=== PATIENT | male | born 1945 | race Two or more races ===

== ENCOUNTER 2018-08-01 19:44 | Emergency (ER) | payer MEDICARE ==
[~2018-08-01] VITALS: Ht 163.8 cm; Wt 94.1 kg
[2018-08-01 20:14] LABS: BASOPHILS # (AUTO) 0.07 x10^3/uL (0-0.1); BASOPHILS % (AUTO) 1 % (0-1); EOSINOPHILS # (AUTO) 0.25 x10^3/uL (0-0.4); EOSINOPHILS % (AUTO) 3 % (1-7); LYMPHOCYTES # (AUTO) 1.14 x10^3/uL (1-3.4); LYMPHOCYTES % (AUTO) 13 % (22-44); MD NO; MEAN CORPUSCULAR HEMOGLOBIN 29.3 pg (27.5-34.5); MEAN CORPUSCULAR HGB CONC 33.5 g/dL (33.2-36.2); MEAN CORPUSCULAR VOLUME 87.3 fL (81-97); MEAN PLATELET VOLUME 8.4 fL (7.4-10.4); MONOCYTES # (AUTO) 0.64 x10^3/uL (0.2-0.8); MONOCYTES % (AUTO) 7 % (2-9); NEUTROPHILS # (AUTO) 7.01 x10^3/uL (1.8-6.8); NEUTROPHILS % (AUTO) 77 % (42-75); PLATELET COUNT 270 x10^3/uL (130-400); RED BLOOD COUNT 3.59 x10^6/uL (4.38-5.82); RED CELL DISTRIBUTION WIDTH 17.7 % (9.4-14.8)
[2018-08-01 20:25] LABS: ALANINE AMINOTRANSFERASE 18 U/L (12-78); ALBUMIN 2.8 g/dL (3.4-5.0); ANION GAP 11 mmol/L (5-15); CHLORIDE 103 mmol/L (98-107)
[2018-08-01 20:27] LABS: ALKALINE PHOSPHATASE 283 U/L (45-117); BILIRUBIN,TOTAL 1.3 mg/dL (0.2-1.0); TOTAL PROTEIN 7.7 g/dL (6.4-8.2)
[2018-08-01 20:33] VITALS: BP 138/69
[2018-08-01 20:38] LABS: MICROSCOPIC NOT IND
[2018-08-01 20:43] LABS: CULTURE INDICATED? NO
== END 2018-08-01 21:22 | disposition home or self-care (01) ==
LOC: ED 21:05
DX: R10.84 Generalized abdominal pain (principal); I10 Essential (primary) hypertension; E11.9 Type 2 diabetes mellitus without complications; E78.00 Pure hypercholesterolemia, unspecified
CPT/HCPCS: 36415; 80053; 81003; 83690; 85025; 99284

== ENCOUNTER 2018-11-01 16:07 | Emergency (ER) | payer MEDICARE, OTHER ==
[~2018-11-01] VITALS: Ht 162.6 cm; Wt 104.0 kg
[2018-11-01 17:19] LABS: BASOPHILS # (AUTO) 0.01 x10^3/uL (0-0.1); BASOPHILS % (AUTO) 0 % (0-1); EOSINOPHILS % (AUTO) 2 % (1-7); LYMPHOCYTES % (AUTO) 9 % (22-44); MD NO; MEAN CORPUSCULAR HEMOGLOBIN 25.8 pg (27.5-34.5); MEAN CORPUSCULAR HGB CONC 32.8 g/dL (33.2-36.2); MEAN CORPUSCULAR VOLUME 78.8 fL (81-97); MEAN PLATELET VOLUME 7.7 fL (7.4-10.4); MONOCYTES # (AUTO) 0.61 x10^3/uL (0.2-0.8); MONOCYTES % (AUTO) 7 % (2-9); NEUTROPHILS # (AUTO) 7.57 x10^3/uL (1.8-6.8); NEUTROPHILS % (AUTO) 82 % (42-75); PLATELET COUNT 318 x10^3/uL (130-400); RED BLOOD COUNT 4.09 x10^6/uL (4.38-5.82); RED CELL DISTRIBUTION WIDTH 19.6 % (9.4-14.8)
[2018-11-01 17:31] LABS: ALANINE AMINOTRANSFERASE 21 U/L (12-78); ALBUMIN 2.5 g/dL (3.4-5.0); ANION GAP 9 mmol/L (5-15); CALCIUM 8.2 mg/dL (8.5-10.1); CHLORIDE 104 mmol/L (98-107); CREATININE 1.43 mg/dL (0.7-1.3)
[2018-11-01 17:33] LABS: ALKALINE PHOSPHATASE 346 U/L (45-117); BILIRUBIN,TOTAL 0.7 mg/dL (0.2-1.0); TOTAL PROTEIN 7.4 g/dL (6.4-8.2)
[2018-11-01] MEDS ORDERED: LIDOCAINE-MPF 1%, 5ML ONE (19:10)
[2018-11-01 21:03] VITALS: BP 112/42
== END 2018-11-01 21:09 | disposition home or self-care (01) ==
LOC: ED 17:19
DX: R18.8 Other ascites (principal); K74.60 Unspecified cirrhosis of liver; I10 Essential (primary) hypertension; E11.9 Type 2 diabetes mellitus without complications; E78.00 Pure hypercholesterolemia, unspecified; Z87.891 Personal history of nicotine dependence; Z95.1 Presence of aortocoronary bypass graft
CPT/HCPCS: 36415; 49083; 76700; 80053; 85025; 99285

== ENCOUNTER 2018-11-11 18:06 | Inpatient (IN) | payer OTHER ==
[~2018-11-11] VITALS: Ht 167.6 cm; Wt 91.9 kg
--- NOTE | 2018-11-11 19:09 | NUR ---
PT. IS A & O X 4 WITH C/O BILAT LEG WOUNDS. PT. WAS SENT FROM [facility] FOR IV ABX THERAPY STATED BY THE PT.'S . PT. HAS THE CP MONITOR IN PLACE. IV ACCESS ESTABLISHED. LABS WERE DRAWN AND SENT INCLUDING BLOOD CULTURES. PT.'S LUNGS ARE CTA. MM ARE PINK AND MOIST WITH PULSES +2 THROUGHOUT. PT.'S CMS CHECKS ARE INTACT TO BILAT LOWER EXTREMITIES. PT.'S LEGS WERE CLEANSED AND DRESSED ENGINEERING INSPECTOR STATED BY HE AND . CARE WAS COMPLETED BY [facility].
[2018-11-11 19:15] LABS: BASOPHILS # (AUTO) 0.04 x10^3/uL (0-0.1); BASOPHILS % (AUTO) 1 % (0-1); EOSINOPHILS # (AUTO) 0.15 x10^3/uL (0-0.4); EOSINOPHILS % (AUTO) 2 % (1-7); LYMPHOCYTES # (AUTO) 0.98 x10^3/uL (1-3.4); LYMPHOCYTES % (AUTO) 11 % (22-44); MD NO; MEAN CORPUSCULAR HGB CONC 33.2 g/dL (33.2-36.2); MEAN CORPUSCULAR VOLUME 78.3 fL (81-97); MEAN PLATELET VOLUME 8.5 fL (7.4-10.4); MONOCYTES # (AUTO) 0.88 x10^3/uL (0.2-0.8); MONOCYTES % (AUTO) 10 % (2-9); NEUTROPHILS # (AUTO) 7.08 x10^3/uL (1.8-6.8); NEUTROPHILS % (AUTO) 78 % (42-75); PLATELET COUNT 316 x10^3/uL (130-400); RED BLOOD COUNT 4.15 x10^6/uL (4.38-5.82); RED CELL DISTRIBUTION WIDTH 20.1 % (9.4-14.8)
[2018-11-11 20:19] LABS: ALANINE AMINOTRANSFERASE 56 U/L (12-78); ALBUMIN 2.3 g/dL (3.4-5.0); ANION GAP 8 mmol/L (5-15); CALCIUM 8.8 mg/dL (8.5-10.1); CHLORIDE 104 mmol/L (98-107); CREATININE 1.42 mg/dL (0.7-1.3)
[2018-11-11 20:21] LABS: ALKALINE PHOSPHATASE 391 U/L (45-117); BILIRUBIN,TOTAL 0.5 mg/dL (0.2-1.0); TOTAL PROTEIN 6.9 g/dL (6.4-8.2)
--- NOTE | 2018-11-11 20:25 | NUR ---
DRESSINGS REMOVED ORDERED. PT. IS REQUESTING PAIN MEDS. DISCUSSED WITH DR. SHANKAR. ORDERS RECEIVED. PT. REMAINS MONITORED.
[2018-11-11] MEDS ORDERED: ONDANSETRON 2MG/ML, 2ML ONE (20:34)
[2018-11-11] MEDS ORDERED: MORPHINE SULFATE 4 MG/ML, 1ML ONE (20:35)
[2018-11-11] MEDS ORDERED: POTA25TA4 PO (20:37)
[2018-11-11] MEDS ORDERED: ALLO100T30 PO (20:37)
[2018-11-11] MEDS ORDERED: BUME2TAB PO (20:37)
[2018-11-11] MEDS ORDERED: SPIR100T4 PO (20:37)
--- NOTE | 2018-11-11 20:45 | NUR ---
PT. WAS MEDICATED FOR PAIN ORDERED. PT. WAS GIVEN ICE CHIPS AND REPOSITIONED FOR COMFORT. WARM BLANKETS ARE IN PLACE. PT.'S HOB IS ELEVATED GREATER THAN 30 DEGREES. PT. IS RESTING AT THIS TIME.
[2018-11-11] MEDS ORDERED: morphine SULFATE 10 MG/ML, 1ML IVPush ONE (21:00)
[2018-11-11] MEDS ORDERED: ONDANSETRON 2MG/ML, 2ML IVPush ONE (21:00)
[2018-11-11] MEDS ORDERED: AMPICILLIN/SULBACTAM 3 GM in SODIUM CHLORIDE 0.9% 100 ML IV ONE (21:00)
[2018-11-11] MEDS ORDERED: VANCOMYCIN PER PHARMACY MC PRN (21:00)
[2018-11-11] MEDS ORDERED: PHARMACOKINETIC CONSULTATION MC ONE (21:00)
[2018-11-11] MEDS ORDERED: VANCOMYCIN 1,600 MG in SODIUM CHLORIDE 0.9% 250 ML IV ONE (21:30)
--- NOTE | 2018-11-11 21:55 | NUR ---
LEG WOUNDS WERE DRESSED. IV ABX ARE INFUSING ON THE PUMP. MEDS WILL NOT SCAN.
--- NOTE | 2018-11-11 22:35 | NUR ---
REPORT WAS CALLED TO SINDY CAON. PT. IS READY FOR TRANSPORT. PT. VOIDED IN THE URINAL.
--- NOTE | 2018-11-11 22:38 | NUR ---
PT.'S WAS GIVEN A SPRITE ZERO. PT. IS BEING TRANSPORTED TO THE FLOOR.
[2018-11-11 23:45] VITALS: BP 130/76
[2018-11-12 00:07] VITALS: BP 143/73
[2018-11-12] MEDS ORDERED: DOCUSATE 100 MG CAPSULE PO PRN (00:30)
[2018-11-12] MEDS ORDERED: ONDANSETRON ODT 4 MG PO PRN (00:30)
[2018-11-12] MEDS ORDERED: hydrALAzine 20 MG/ML, 1ML IVPush PRN (00:30)
[2018-11-12] MEDS ORDERED: VANCOMYCIN PER PHARMACY MC PRN (00:30)
[2018-11-12] MEDS ORDERED: PHARMACY MAY ADJ FOR RENAL FX MC PRN (01:00)
[2018-11-12] MEDS ORDERED: AMPICILLIN/SULBACTAM 3 GM IM SCH (05:00)
[2018-11-12] MEDS ORDERED: AMPICILLIN/SULBACTAM 3 GM IV SCH (05:00)
[2018-11-12] MEDS: AMPICILLIN/SULBACTAM 3 GM in SODIUM CHLORIDE 0.9% 100 ML IV SCH ×3 (05:03→21:17)
[2018-11-12] MEDS: HEPARIN 5,000 UNITS/ML, 1ML SQ SCH ×3 (05:04→21:18)
[2018-11-12] MEDS ORDERED: PHARMACOKINETIC CONSULTATION MC ONE (07:00)
[2018-11-12] MEDS ORDERED: PHARMACOKINETIC MONITORING MC PRN (07:00)
[2018-11-12 07:47] VITALS: BP 104/61
[2018-11-12] MEDS: ALLOPURINOL 100 MG TABLET PO SCH (09:05)
[2018-11-12] MEDS: BUMETANIDE 1 MG TABLET PO SCH ×2 (09:05→21:17)
[2018-11-12] MEDS: POTASSIUM CHLORIDE 10 MEQ TABLET.ER PO SCH ×2 (09:05→21:17)
[2018-11-12] MEDS: SPIRONOLACTONE 100 MG TABLET PO SCH ×2 (09:05→21:17)
[2018-11-12] MEDS ORDERED: GLUCAGON 1 MG IM PRN (10:00)
[2018-11-12] MEDS ORDERED: DEXTROSE 4 GM TAB.CHEW PO PRN (10:00)
[2018-11-12] MEDS ORDERED: DEXTROSE 50%, 50ML SYRINGE IVPush PRN (10:00)
[2018-11-12] MEDS: INSULIN LISPRO 100 UNITS/ML, PEN SQ-INSULIN SCH ×3 (11:00→21:00)
[2018-11-12 12:28] LABS: HEMOGLOBIN A1C 5.9 % (4.2-6.3)
[2018-11-12] MEDS ORDERED: GADOBUTROL 10 MMOL/10 ML PFS ONE (13:11)
[2018-11-12 15:02] VITALS: BP 125/67
[2018-11-12] MEDS ORDERED: VANCOMYCIN 1,700 MG in SODIUM CHLORIDE 0.9% 250 ML IV SCH (20:00)
[2018-11-12] MEDS: SODIUM CHLORIDE FLUSH 10ML SYR IVF SCH (21:18)
[2018-11-12 21:37] VITALS: BP 131/71
[2018-11-13] MEDS ORDERED: HYDROmorphone 1 MG/ML, 1ML IV PRN (02:30)
[2018-11-13] MEDS: OXYcodone IR 5MG TABLET PO PRN ×2 (03:03→19:59)
[2018-11-13 03:51] VITALS: BP 106/56
[2018-11-13] MEDS: AMPICILLIN/SULBACTAM 3 GM in SODIUM CHLORIDE 0.9% 100 ML IV SCH ×3 (05:03→19:59)
[2018-11-13] MEDS: HEPARIN 5,000 UNITS/ML, 1ML SQ SCH ×3 (05:04→23:09)
[2018-11-13 05:29] LABS: BASOPHILS # (AUTO) 0.11 x10^3/uL (0-0.1); BASOPHILS % (AUTO) 1 % (0-1); EOSINOPHILS # (AUTO) 0.34 x10^3/uL (0-0.4); EOSINOPHILS % (AUTO) 4 % (1-7); LYMPHOCYTES # (AUTO) 1.36 x10^3/uL (1-3.4); LYMPHOCYTES % (AUTO) 16 % (22-44); MD NO; MEAN CORPUSCULAR HGB CONC 32.8 g/dL (33.2-36.2); MEAN CORPUSCULAR VOLUME 79.1 fL (81-97); MEAN PLATELET VOLUME 8.1 fL (7.4-10.4); MONOCYTES # (AUTO) 0.79 x10^3/uL (0.2-0.8); MONOCYTES % (AUTO) 9 % (2-9); NEUTROPHILS # (AUTO) 5.92 x10^3/uL (1.8-6.8); NEUTROPHILS % (AUTO) 70 % (42-75); PLATELET COUNT 255 x10^3/uL (130-400); RED BLOOD COUNT 3.84 x10^6/uL (4.38-5.82)
[2018-11-13 05:41] LABS: ANION GAP 7 mmol/L (5-15); CALCIUM 8.1 mg/dL (8.5-10.1); CHLORIDE 101 mmol/L (98-107)
[2018-11-13 05:43] LABS: CREATININE 1.61 mg/dL (0.7-1.3)
[2018-11-13] MEDS: INSULIN LISPRO 100 UNITS/ML, PEN SQ-INSULIN SCH ×4 (07:00→20:01)
[2018-11-13 08:27] VITALS: BP 110/61
[2018-11-13] MEDS: ALLOPURINOL 100 MG TABLET PO SCH (10:35)
[2018-11-13] MEDS: SODIUM CHLORIDE FLUSH 10ML SYR IVF SCH ×2 (10:36→21:00)
[2018-11-13 14:10] VITALS: BP 116/62
[2018-11-13 21:12] VITALS: BP 123/68
[2018-11-14] MEDS: AMPICILLIN/SULBACTAM 3 GM in SODIUM CHLORIDE 0.9% 100 ML IV SCH ×2 (02:00→08:13)
[2018-11-14 03:58] VITALS: BP 122/67
[2018-11-14] MEDS: HEPARIN 5,000 UNITS/ML, 1ML SQ SCH ×3 (06:21→23:00)
[2018-11-14] MEDS: INSULIN LISPRO 100 UNITS/ML, PEN SQ-INSULIN SCH (07:00)
[2018-11-14 07:42] VITALS: BP 114/64
[2018-11-14] MEDS: ALLOPURINOL 100 MG TABLET PO SCH (08:12)
[2018-11-14] MEDS: SODIUM CHLORIDE FLUSH 10ML SYR IVF SCH ×2 (08:13→20:00)
[2018-11-14 12:40] VITALS: BP 118/67
[2018-11-14 19:25] VITALS: BP 118/66
[2018-11-14] MEDS: AMOXICILLIN/CLAV 875-125MG TABLET PO SCH (20:01)
[2018-11-14] MEDS: OXYcodone IR 5MG TABLET PO PRN (23:00)
[2018-11-15 01:12] VITALS: BP 127/64
[2018-11-15] MEDS: HEPARIN 5,000 UNITS/ML, 1ML SQ SCH ×2 (06:12→14:15)
[2018-11-15 07:54] VITALS: BP 114/71
[2018-11-15] MEDS: AMOXICILLIN/CLAV 875-125MG TABLET PO SCH (08:40)
[2018-11-15] MEDS: ALLOPURINOL 100 MG TABLET PO SCH (08:40)
[2018-11-15] MEDS: SODIUM CHLORIDE FLUSH 10ML SYR IVF SCH (08:41)
[2018-11-15] MEDS ORDERED: SPIRONOLACTONE 25 MG TABLET PO SCH (09:00)
[2018-11-15] MEDS ORDERED: BUMETANIDE 1 MG TABLET PO SCH (09:00)
[2018-11-15 13:34] VITALS: BP 127/67
[2018-11-15] MEDS ORDERED: BUME1TAB21 PO (13:54)
[2018-11-15] MEDS ORDERED: AMOX1TAB12 PO (13:54)
[2018-11-15] MEDS ORDERED: SPIR25TA PO (13:54)
== END 2018-11-15 15:50 | disposition home or self-care (01) | DRG 638 ==
LOC: ED 19:16 → EDIP 21:50 → 3NE 22:47 → DCLOUNGE 11-15 15:29
PROVIDERS: ADMIT Hospitalist; ATTEND Hospitalist
DX: E11.622 Type 2 diabetes mellitus with other skin ulcer (principal); L03.116 Cellulitis of left lower limb; R18.8 Other ascites; L97.919 Non-pressure chronic ulcer of unspecified part of right lower leg with unspecified severity; L97.928 Non-pressure chronic ulcer of unspecified part of left lower leg with other specified severity; L03.115 Cellulitis of right lower limb; E11.51 Type 2 diabetes mellitus with diabetic peripheral angiopathy without gangrene; E11.22 Type 2 diabetes mellitus with diabetic chronic kidney disease; E11.21 Type 2 diabetes mellitus with diabetic nephropathy; E11.40 Type 2 diabetes mellitus with diabetic neuropathy, unspecified; E11.69 Type 2 diabetes mellitus with other specified complication; E78.00 Pure hypercholesterolemia, unspecified; E78.5 Hyperlipidemia, unspecified; I13.10 Hypertensive heart and chronic kidney disease without heart failure, with stage 1 through stage 4 chronic kidney disease, or unspecified chronic kidney disease; I83.019 Varicose veins of right lower extremity with ulcer of unspecified site; I83.029 Varicose veins of left lower extremity with ulcer of unspecified site; I87.8 Other specified disorders of veins; K74.60 Unspecified cirrhosis of liver; N18.9 Chronic kidney disease, unspecified; Z95.1 Presence of aortocoronary bypass graft; Z79.4 Long term (current) use of insulin; Z87.891 Personal history of nicotine dependence
CPT/HCPCS: 36415; 80048; 80053; 80202; 82962; 83036; 83605; 85025; 87040; 90656; 93922; 93970; A9585; G0378; J0295; J1644; J2405; J3370; Q0162; 29581-50; J2270; J7050

== ENCOUNTER 2018-11-20 05:09 | Emergency (ER) | payer OTHER ==
[~2018-11-20] VITALS: Ht 162.6 cm; Wt 93.8 kg
[~2018-11-20 05:09] MED LIST: ALLO100T30 PO; AMOX1TAB12 PO; BUME1TAB21 PO; BUME2TAB PO; POTA25TA4 PO; SPIR100T4 PO; SPIR25TA PO
--- NOTE | 2018-11-20 05:22 | NUR ---
HERE 11/03/18 FOR SAME, PARACENTESIS DONE, 9000ML FLUID REMOVED
[2018-11-20 05:49] LABS: BASOPHILS # (AUTO) 0.14 x10^3/uL (0-0.1); BASOPHILS % (AUTO) 2 % (0-1); EOSINOPHILS # (AUTO) 0.31 x10^3/uL (0-0.4); EOSINOPHILS % (AUTO) 4 % (1-7); LYMPHOCYTES # (AUTO) 1.09 x10^3/uL (1-3.4); LYMPHOCYTES % (AUTO) 14 % (22-44); MD NO; MEAN CORPUSCULAR HEMOGLOBIN 26.7 pg (27.5-34.5); MEAN CORPUSCULAR HGB CONC 33.2 g/dL (33.2-36.2); MEAN CORPUSCULAR VOLUME 80.3 fL (81-97); MEAN PLATELET VOLUME 7.9 fL (7.4-10.4); MONOCYTES # (AUTO) 0.63 x10^3/uL (0.2-0.8); MONOCYTES % (AUTO) 8 % (2-9); NEUTROPHILS # (AUTO) 5.71 x10^3/uL (1.8-6.8); NEUTROPHILS % (AUTO) 73 % (42-75); PLATELET COUNT 258 x10^3/uL (130-400); RED BLOOD COUNT 3.96 x10^6/uL (4.38-5.82); RED CELL DISTRIBUTION WIDTH 20.4 % (9.4-14.8)
[2018-11-20 06:02] LABS: ALANINE AMINOTRANSFERASE 34 U/L (12-78); ALBUMIN 2.3 g/dL (3.4-5.0); ANION GAP 7 mmol/L (5-15); CALCIUM 8.1 mg/dL (8.5-10.1); CHLORIDE 101 mmol/L (98-107)
[2018-11-20 06:04] LABS: ALKALINE PHOSPHATASE 383 U/L (45-117); BILIRUBIN,TOTAL 0.6 mg/dL (0.2-1.0); CREATININE 1.27 mg/dL (0.7-1.3); TOTAL PROTEIN 7.1 g/dL (6.4-8.2)
[2018-11-20] MEDS ORDERED: LIDOCAINE-MPF 1%, 5ML INFIL ONE (06:30)
--- NOTE | 2018-11-20 06:32 | NUR ---
PT RESTING CALMLY, DENIES PAIN OR NEEDS AT THIS TIME, CALL LIGHT WITHIN REACH, AWAITING PARACENTESIS
[2018-11-20] MEDS ORDERED: LIDOCAINE-MPF 1%, 5ML ONE (06:34)
--- NOTE | 2018-11-20 06:55 | NUR ---
REPORT GIVEN TO RACHAEL WATSON
--- NOTE | 2018-11-20 08:00 | NUR ---
pt to ir
[2018-11-20 09:07] VITALS: BP 150/74
== END 2018-11-20 09:09 | disposition home or self-care (01) ==
LOC: ED 05:52
DX: R18.8 Other ascites (principal); D63.8 Anemia in other chronic diseases classified elsewhere; I10 Essential (primary) hypertension; E11.9 Type 2 diabetes mellitus without complications; F17.200 Nicotine dependence, unspecified, uncomplicated
CPT/HCPCS: 36415; 49083; 80053; 85025; 99285

== ENCOUNTER 2018-11-27 08:22 | Emergency (ER) | payer OTHER ==
[~2018-11-27] VITALS: Ht 162.6 cm; Wt 91.0 kg
[2018-11-27] MEDS ORDERED: LIDOCAINE 1%, 10ML ONE (08:30)
--- NOTE | 2018-11-27 09:26 | NUR ---
PT IN US NOW
[2018-11-27 09:28] LABS: BASOPHILS # (AUTO) 0.06 x10^3/uL (0-0.1); BASOPHILS % (AUTO) 1 % (0-1); EOSINOPHILS # (AUTO) 0.26 x10^3/uL (0-0.4); EOSINOPHILS % (AUTO) 4 % (1-7); LYMPHOCYTES # (AUTO) 0.96 x10^3/uL (1-3.4); LYMPHOCYTES % (AUTO) 15 % (22-44); MD NO; MEAN CORPUSCULAR HEMOGLOBIN 25.1 pg (27.5-34.5); MEAN CORPUSCULAR HGB CONC 31.1 g/dL (33.2-36.2); MEAN CORPUSCULAR VOLUME 80.8 fL (81-97); MEAN PLATELET VOLUME 8.2 fL (7.4-10.4); MONOCYTES # (AUTO) 0.47 x10^3/uL (0.2-0.8); MONOCYTES % (AUTO) 7 % (2-9); NEUTROPHILS # (AUTO) 4.65 x10^3/uL (1.8-6.8); NEUTROPHILS % (AUTO) 73 % (42-75); PLATELET COUNT 283 x10^3/uL (130-400); RED BLOOD COUNT 3.98 x10^6/uL (4.38-5.82)
[2018-11-27 09:29] LABS: ALANINE AMINOTRANSFERASE 34 U/L (12-78); ALBUMIN 2.2 g/dL (3.4-5.0); ANION GAP 9 mmol/L (5-15); CALCIUM 8.1 mg/dL (8.5-10.1); CHLORIDE 100 mmol/L (98-107)
[2018-11-27 09:32] LABS: ALKALINE PHOSPHATASE 375 U/L (45-117); BILIRUBIN,TOTAL 0.6 mg/dL (0.2-1.0); CREATININE 1.12 mg/dL (0.7-1.3); TOTAL PROTEIN 6.5 g/dL (6.4-8.2)
--- NOTE | 2018-11-27 10:54 | NUR ---
Patient given discharge instructions and they have confirmed that they understand the instructions. Patient ambulatory with steady gait.
[2018-11-27 10:55] VITALS: BP 101/41
== END 2018-11-27 10:56 | disposition home or self-care (01) ==
LOC: ED 08:40
DX: K70.31 Alcoholic cirrhosis of liver with ascites (principal); I10 Essential (primary) hypertension; E11.9 Type 2 diabetes mellitus without complications
CPT/HCPCS: 36415; 49083; 80053; 85025; 88112; 88305; 99285; J3490; 88341; 88342; 99284

== ENCOUNTER 2018-12-06 17:42 | Emergency (ER) | payer OTHER ==
[~2018-12-06] VITALS: Ht 162.6 cm; Wt 90.9 kg
[2018-12-06 18:46] LABS: BASOPHILS # (AUTO) 0.08 x10^3/uL (0-0.1); BASOPHILS % (AUTO) 1 % (0-1); EOSINOPHILS # (AUTO) 0.31 x10^3/uL (0-0.4); EOSINOPHILS % (AUTO) 4 % (1-7); LYMPHOCYTES # (AUTO) 1.18 x10^3/uL (1-3.4); LYMPHOCYTES % (AUTO) 16 % (22-44); MD NO; MEAN CORPUSCULAR HEMOGLOBIN 26.3 pg (27.5-34.5); MEAN CORPUSCULAR HGB CONC 32.8 g/dL (33.2-36.2); MEAN CORPUSCULAR VOLUME 80.4 fL (81-97); MEAN PLATELET VOLUME 8.3 fL (7.4-10.4); MONOCYTES % (AUTO) 9 % (2-9); NEUTROPHILS # (AUTO) 5.31 x10^3/uL (1.8-6.8); NEUTROPHILS % (AUTO) 70 % (42-75); PLATELET COUNT 267 x10^3/uL (130-400); RED BLOOD COUNT 3.93 x10^6/uL (4.38-5.82); RED CELL DISTRIBUTION WIDTH 18.6 % (9.4-14.8)
[2018-12-06 18:55] LABS: ALBUMIN 2.2 g/dL (3.4-5.0); ANION GAP 6 mmol/L (5-15); CALCIUM 8.3 mg/dL (8.5-10.1); CHLORIDE 101 mmol/L (98-107)
--- NOTE | 2018-12-06 18:57 | NUR ---
BS REPORT OF PT FROM RACHAEL ABRAHAM, AND ASSUMING CARE OF PT.
[2018-12-06 18:59] LABS: ALANINE AMINOTRANSFERASE 45 U/L (12-78); ALKALINE PHOSPHATASE 428 U/L (45-117); BILIRUBIN,TOTAL 0.7 mg/dL (0.2-1.0); CREATININE 1.19 mg/dL (0.7-1.3); TOTAL PROTEIN 6.7 g/dL (6.4-8.2)
[2018-12-06 19:30] LABS: INTERNATIONAL NORMALIZED RATIO 0.99 (0.93-1.1); PROTHROMBIN TIME 10.5 Seconds (9.6-11.5)
--- NOTE | 2018-12-06 20:09 | NUR ---
PROCEDURAL CONSENT OBTAINED FROM PT AND PLACED IN PT CHART.
[2018-12-06] MEDS ORDERED: LIDOCAINE-MPF 1%, 5ML ONE (20:36)
--- NOTE | 2018-12-06 21:27 | NUR ---
pt back from us at this time.
[2018-12-06 21:40] VITALS: BP 100/37
--- NOTE | 2018-12-06 23:38 | NUR ---
pt d/c with d/c summary. all questions answered. pt ambulates to registration desk with steady gait for d/c home with . pt denies any other needs pertaining to this visit.
== END 2018-12-06 23:41 | disposition home or self-care (01) ==
LOC: ED 21:54
DX: K70.31 Alcoholic cirrhosis of liver with ascites (principal); E78.00 Pure hypercholesterolemia, unspecified; I10 Essential (primary) hypertension; E11.9 Type 2 diabetes mellitus without complications
CPT/HCPCS: 36415; 49083; 80053; 82042; 83615; 85025; 85610; 85730; 87070; 87205; 89051; 99285

== ENCOUNTER 2018-12-14 15:44 | Emergency (ER) | payer OTHER ==
[~2018-12-14] VITALS: Ht 162.6 cm; Wt 88.9 kg
--- NOTE | 2018-12-14 16:23 | NUR ---
Lab at bedside. Pt aware of plan to have blood work checked prior to discharge.
[2018-12-14 16:42] LABS: BASOPHILS # (AUTO) 0.07 x10^3/uL (0-0.1); BASOPHILS % (AUTO) 1 % (0-1); EOSINOPHILS # (AUTO) 0.17 x10^3/uL (0-0.4); EOSINOPHILS % (AUTO) 2 % (1-7); LYMPHOCYTES # (AUTO) 1.09 x10^3/uL (1-3.4); LYMPHOCYTES % (AUTO) 14 % (22-44); MD NO; MEAN CORPUSCULAR HEMOGLOBIN 26.5 pg (27.5-34.5); MEAN CORPUSCULAR HGB CONC 33.1 g/dL (33.2-36.2); MEAN CORPUSCULAR VOLUME 79.9 fL (81-97); MEAN PLATELET VOLUME 8.3 fL (7.4-10.4); MONOCYTES # (AUTO) 0.57 x10^3/uL (0.2-0.8); MONOCYTES % (AUTO) 7 % (2-9); NEUTROPHILS # (AUTO) 5.78 x10^3/uL (1.8-6.8); NEUTROPHILS % (AUTO) 75 % (42-75); PLATELET COUNT 259 x10^3/uL (130-400); RED BLOOD COUNT 3.86 x10^6/uL (4.38-5.82); RED CELL DISTRIBUTION WIDTH 18.3 % (9.4-14.8)
[2018-12-14 16:52] LABS: ALANINE AMINOTRANSFERASE 51 U/L (12-78); ANION GAP 9 mmol/L (5-15); CALCIUM 7.8 mg/dL (8.5-10.1); CHLORIDE 102 mmol/L (98-107); CREATININE 1.39 mg/dL (0.7-1.3)
[2018-12-14 16:55] LABS: ALKALINE PHOSPHATASE 427 U/L (45-117); BILIRUBIN,TOTAL 0.4 mg/dL (0.2-1.0); INTERNATIONAL NORMALIZED RATIO 1.01 (0.93-1.1); PROTHROMBIN TIME 10.7 Seconds (9.6-11.5); TOTAL PROTEIN 6.3 g/dL (6.4-8.2)
[2018-12-14 17:18] VITALS: BP 106/51
--- NOTE | 2018-12-14 17:19 | NUR ---
Patient/Caregiver given discharge instructions and they have confirmed that they understand the instructions. Patient ambulatory with steady gait.
== END 2018-12-14 17:20 | disposition home or self-care (01) ==
LOC: ED 17:09
DX: K70.31 Alcoholic cirrhosis of liver with ascites (principal); E78.00 Pure hypercholesterolemia, unspecified; E11.9 Type 2 diabetes mellitus without complications; I10 Essential (primary) hypertension; F17.200 Nicotine dependence, unspecified, uncomplicated; Z95.1 Presence of aortocoronary bypass graft
CPT/HCPCS: 36415; 80053; 83690; 85025; 85610; 85730; 99283

== ENCOUNTER 2018-12-21 15:39 | Emergency (ER) | payer OTHER ==
[~2018-12-21] VITALS: Ht 162.6 cm; Wt 89.6 kg
[2018-12-21] MEDS ORDERED: SODIUM CHLORIDE FLUSH 10ML SYR IVF ONE (16:00)
[2018-12-21 16:14] LABS: BASOPHILS # (AUTO) 0.02 x10^3/uL (0-0.1); BASOPHILS % (AUTO) 0 % (0-1); EOSINOPHILS # (AUTO) 0.14 x10^3/uL (0-0.4); EOSINOPHILS % (AUTO) 2 % (1-7); LYMPHOCYTES # (AUTO) 0.97 x10^3/uL (1-3.4); LYMPHOCYTES % (AUTO) 11 % (22-44); MD NO; MEAN CORPUSCULAR HEMOGLOBIN 25.5 pg (27.5-34.5); MEAN CORPUSCULAR HGB CONC 32.1 g/dL (33.2-36.2); MEAN CORPUSCULAR VOLUME 79.6 fL (81-97); MEAN PLATELET VOLUME 7.9 fL (7.4-10.4); MONOCYTES # (AUTO) 0.52 x10^3/uL (0.2-0.8); MONOCYTES % (AUTO) 6 % (2-9); NEUTROPHILS # (AUTO) 6.88 x10^3/uL (1.8-6.8); NEUTROPHILS % (AUTO) 81 % (42-75); PLATELET COUNT 304 x10^3/uL (130-400); RED BLOOD COUNT 4.35 x10^6/uL (4.38-5.82); RED CELL DISTRIBUTION WIDTH 17.7 % (9.4-14.8)
[2018-12-21 16:25] LABS: PROTHROMBIN TIME 10.6 Seconds (9.6-11.5)
[2018-12-21 16:27] LABS: ALANINE AMINOTRANSFERASE 34 U/L (12-78); ALBUMIN 2.3 g/dL (3.4-5.0); ANION GAP 8 mmol/L (5-15); CALCIUM 8.2 mg/dL (8.5-10.1); CHLORIDE 101 mmol/L (98-107); CREATININE 1.79 mg/dL (0.7-1.3)
[2018-12-21 16:32] LABS: ALKALINE PHOSPHATASE 432 U/L (45-117); BILIRUBIN,TOTAL 0.4 mg/dL (0.2-1.0); TOTAL PROTEIN 7.2 g/dL (6.4-8.2); TROPONIN I < 0.015 ng/mL (0.000-0.045)
--- NOTE | 2018-12-21 18:53 | NUR ---
PT BEDSIDE REPORT FROM MARIANA CANO. THIS RN TO ASSUME CARE OF PT. PT REFUSING IV AT THIS TIME. PT EDUCATED ON NEED AND STILL REFUSING. PT AND STATES "I JUST WANT THIS PARACENTESIS DONE AND WE CAN GO HOME." VSS. CALL LIGHT WITHIN REACH.
[2018-12-21 18:55] VITALS: BP 103/48
--- NOTE | 2018-12-21 19:17 | NUR ---
PT STATES "IF THE DOCTOR ISNT HERE SOON JUST UNCLIP ME FROM THIS STUFF AND I GO HOME." PT EDUCATED AND PT STILL WANTING THE DOCTOR TO "BE HERE NOW"
--- NOTE | 2018-12-21 19:21 | NUR ---
PA AT BEDSIDE TO TALK TO PT. PT AGREES TO STAY FOR PROCEDURE AT THIS TIME.
[2018-12-21] MEDS ORDERED: LIDOCAINE-MPF 1%, 5ML ONE (19:57)
--- NOTE | 2018-12-21 20:14 | NUR ---
PT IN IR.
--- NOTE | 2018-12-21 20:41 | NUR ---
PT STILL IN IR AT THIS TIME.
== END 2018-12-21 21:33 | disposition home or self-care (01) ==
LOC: ED 19:38
DX: K74.60 Unspecified cirrhosis of liver (principal); R18.8 Other ascites; E11.9 Type 2 diabetes mellitus without complications; I10 Essential (primary) hypertension; E78.00 Pure hypercholesterolemia, unspecified
CPT/HCPCS: 36415; 49083; 71045; 80053; 83690; 83880; 84484; 85025; 85610; 85730; 93005; 99284

== ENCOUNTER 2019-01-15 08:14 | Emergency (ER) | payer OTHER ==
[~2019-01-15] VITALS: Ht 162.6 cm; Wt 86.0 kg
--- NOTE | 2019-01-15 09:14 | NUR ---
REVIEW OF CHART, PT SLEEPING AT FIRST CONTACT. NO DISTRESS, ERP IN TO EVALUATE.
[2019-01-15 09:42] LABS: BASOPHILS # (AUTO) 0.02 x10^3/uL (0-0.1); BASOPHILS % (AUTO) 0 % (0-1); EOSINOPHILS # (AUTO) 0.22 x10^3/uL (0-0.4); EOSINOPHILS % (AUTO) 4 % (1-7); LYMPHOCYTES # (AUTO) 0.97 x10^3/uL (1-3.4); LYMPHOCYTES % (AUTO) 17 % (22-44); MD NO; MEAN CORPUSCULAR HEMOGLOBIN 27.1 pg (27.5-34.5); MEAN CORPUSCULAR HGB CONC 33.6 g/dL (33.2-36.2); MEAN CORPUSCULAR VOLUME 80.7 fL (81-97); MEAN PLATELET VOLUME 8.7 fL (7.4-10.4); MONOCYTES # (AUTO) 0.54 x10^3/uL (0.2-0.8); MONOCYTES % (AUTO) 9 % (2-9); NEUTROPHILS % (AUTO) 70 % (42-75); PLATELET COUNT 192 x10^3/uL (130-400); RED BLOOD COUNT 4.26 x10^6/uL (4.38-5.82); RED CELL DISTRIBUTION WIDTH 17.3 % (9.4-14.8)
[2019-01-15 09:52] LABS: ALANINE AMINOTRANSFERASE 33 U/L (12-78); ALBUMIN 2.3 g/dL (3.4-5.0); ANION GAP 5 mmol/L (5-15); CALCIUM 8.7 mg/dL (8.5-10.1); CHLORIDE 105 mmol/L (98-107); CREATININE 1.29 mg/dL (0.7-1.3)
[2019-01-15 09:54] LABS: ALKALINE PHOSPHATASE 308 U/L (45-117); BILIRUBIN,TOTAL 0.6 mg/dL (0.2-1.0); TOTAL PROTEIN 6.5 g/dL (6.4-8.2)
--- NOTE | 2019-01-15 10:54 | NUR ---
ALL RESULTS BACK, PT FOR RECHECK.
--- NOTE | 2019-01-15 11:58 | NUR ---
AWAITING IR PARACENTESIS.
--- NOTE | 2019-01-15 13:02 | NUR ---
PT RESTING COMFORTABLY, FAMILY AT BS. POC DISCUSSED, WAIT FOR IR. PT STATES HE MAY GO HOME AND COME BACK. PROCESS EXPLAINED TO PT AND FAMILY AND THAT IF PT LEAVES HE WILL NEED TO START OVER WITH CHECKIN AND PROCESS. PT VERBALIZES UNDERSTANDING. IMPORTANCE OF ESTABLISHING CARE WITH ROUTINE APPTS REVIEWED WITH PT. PT STATES APPOINTMENT MADE BUT NOT UNTIL February.
--- NOTE | 2019-01-15 13:53 | NUR ---
PT TO IR.
[2019-01-15 14:36] VITALS: BP 132/74
== END 2019-01-15 14:41 | disposition home or self-care (01) ==
LOC: ED 08:51
DX: K70.31 Alcoholic cirrhosis of liver with ascites (principal); E78.5 Hyperlipidemia, unspecified; E78.00 Pure hypercholesterolemia, unspecified; I10 Essential (primary) hypertension; E11.9 Type 2 diabetes mellitus without complications; Z95.1 Presence of aortocoronary bypass graft; F17.210 Nicotine dependence, cigarettes, uncomplicated
CPT/HCPCS: 36415; 49083; 80053; 85025; 99285

== ENCOUNTER 2019-01-29 10:03 | Emergency (ER) | payer OTHER ==
[~2019-01-29] VITALS: Ht 162.6 cm; Wt 87.0 kg
[~2019-01-29 10:03] MED LIST changes: +LIDOCAINE 1%, 10ML ONE
[2019-01-29 10:57] LABS: BASOPHILS # (AUTO) 0.04 x10^3/uL (0-0.1); BASOPHILS % (AUTO) 1 % (0-1); EOSINOPHILS # (AUTO) 0.22 x10^3/uL (0-0.4); EOSINOPHILS % (AUTO) 4 % (1-7); LYMPHOCYTES # (AUTO) 0.89 x10^3/uL (1-3.4); LYMPHOCYTES % (AUTO) 15 % (22-44); MD NO; MEAN CORPUSCULAR HEMOGLOBIN 25.8 pg (27.5-34.5); MEAN CORPUSCULAR HGB CONC 32.2 g/dL (33.2-36.2); MEAN CORPUSCULAR VOLUME 80.1 fL (81-97); MEAN PLATELET VOLUME 9.1 fL (7.4-10.4); MONOCYTES % (AUTO) 10 % (2-9); NEUTROPHILS # (AUTO) 4.33 x10^3/uL (1.8-6.8); NEUTROPHILS % (AUTO) 71 % (42-75); PLATELET COUNT 184 x10^3/uL (130-400); RED BLOOD COUNT 4.57 x10^6/uL (4.38-5.82)
[2019-01-29 11:09] LABS: ALANINE AMINOTRANSFERASE 28 U/L (12-78); ALBUMIN 2.4 g/dL (3.4-5.0); ANION GAP 8 mmol/L (5-15); CALCIUM 8.8 mg/dL (8.5-10.1); CHLORIDE 105 mmol/L (98-107)
[2019-01-29 11:11] LABS: ALKALINE PHOSPHATASE 289 U/L (45-117); BILIRUBIN,TOTAL 0.6 mg/dL (0.2-1.0); TOTAL PROTEIN 6.3 g/dL (6.4-8.2)
--- NOTE | 2019-01-29 11:18 | NUR ---
PT TO IR
[2019-01-29 12:15] VITALS: BP 128/74
== END 2019-01-29 12:17 | disposition home or self-care (01) ==
LOC: ED 10:36
DX: K70.31 Alcoholic cirrhosis of liver with ascites (principal); E78.00 Pure hypercholesterolemia, unspecified; I10 Essential (primary) hypertension; E11.9 Type 2 diabetes mellitus without complications; E78.5 Hyperlipidemia, unspecified
CPT/HCPCS: 36415; 49083; 80053; 85025; 99285; J3490; 99284

== ENCOUNTER 2019-02-05 10:07 | Emergency (ER) | payer OTHER ==
[~2019-02-05] VITALS: Ht 162.6 cm; Wt 84.1 kg
[~2019-02-05 10:07] MED LIST changes: -LIDOCAINE 1%, 10ML ONE
[2019-02-05 10:10] VITALS: BP 155/78
--- NOTE | 2019-02-05 10:28 | NUR ---
THIS IS A 74 YEAR OLD MALE WHO C/O ABD PAIN AND BLOATING X 1 WEEK. NAUSEATED. HX: CIRRHOSIS
[2019-02-05] MEDS ORDERED: LIDOCAINE 1%, 10ML ONE (11:00)
--- NOTE | 2019-02-05 11:12 | NUR ---
PT TO IR VIA [facility]
--- NOTE | 2019-02-05 13:07 | NUR ---
Patient/Caregiver given discharge instructions and they have confirmed that they understand the instructions. Patient ambulatory with steady gait.
== END 2019-02-05 13:11 | disposition home or self-care (01) ==
LOC: ED 12:09
DX: K70.31 Alcoholic cirrhosis of liver with ascites (principal); I10 Essential (primary) hypertension; E78.00 Pure hypercholesterolemia, unspecified; E78.5 Hyperlipidemia, unspecified; E11.9 Type 2 diabetes mellitus without complications
CPT/HCPCS: 49083; 99285; J3490

== ENCOUNTER → 2019-02-25 | Outpatient (CLI) | payer OTHER ==
[~2019-02-25] MED LIST changes: +VITAMIN D
[2019-02-25 09:17] LABS: BASOPHILS # (AUTO) 0.06 x10^3/uL (0-0.1); BASOPHILS % (AUTO) 1 % (0-1); EOSINOPHILS # (AUTO) 0.26 x10^3/uL (0-0.4); EOSINOPHILS % (AUTO) 5 % (1-7); LYMPHOCYTES # (AUTO) 1.22 x10^3/uL (1-3.4); LYMPHOCYTES % (AUTO) 21 % (22-44); MD NO; MEAN CORPUSCULAR HEMOGLOBIN 26.7 pg (27.5-34.5); MEAN CORPUSCULAR HGB CONC 32.7 g/dL (33.2-36.2); MEAN CORPUSCULAR VOLUME 81.6 fL (81-97); MEAN PLATELET VOLUME 8.6 fL (7.4-10.4); MONOCYTES # (AUTO) 0.52 x10^3/uL (0.2-0.8); MONOCYTES % (AUTO) 9 % (2-9); NEUTROPHILS % (AUTO) 64 % (42-75); PLATELET COUNT 211 x10^3/uL (130-400); RED BLOOD COUNT 5.06 x10^6/uL (4.38-5.82)
[2019-02-25 09:23] LABS: INTERNATIONAL NORMALIZED RATIO 1.08 (0.93-1.1); PROTHROMBIN TIME 11.3 Seconds (9.6-11.5)
[2019-02-25 10:07] LABS: ALBUMIN 2.8 g/dL (3.4-5.0); ANION GAP 9 mmol/L (5-15); CALCIUM 8.6 mg/dL (8.5-10.1); CHLORIDE 103 mmol/L (98-107)
[2019-02-25 10:27] LABS: ALANINE AMINOTRANSFERASE 30 U/L (12-78); ALKALINE PHOSPHATASE 259 U/L (45-117); BILIRUBIN,TOTAL 1.4 mg/dL (0.2-1.0); CREATININE 1.17 mg/dL (0.7-1.3); TOTAL PROTEIN 6.7 g/dL (6.4-8.2)
[2019-02-27 15:40] LABS: % IRON SATURATION 32 % (20-55); IRON LEVEL 108 mcg/dL (65-175); TOTAL IRON BINDING CAPACITY 334 mcg/dL (250-450)
== END | disposition home or self-care (01) ==
LOC: LAB 08:20
PROVIDERS: ATTEND Internal Medicine
DX: K74.60 Unspecified cirrhosis of liver (principal); R18.8 Other ascites; I10 Essential (primary) hypertension; E11.9 Type 2 diabetes mellitus without complications; Z72.89 Other problems related to lifestyle; Z87.891 Personal history of nicotine dependence; Z98.890 Other specified postprocedural states
CPT/HCPCS: 36415; 80053; 82103; 82172; 82247; 82390; 82465; 82728; 82947; 82977; 83010; 83516; 83540; 83550; 83883; 84443; 84450; 84478; 85025; 85610; 86038; 86704; 86705; 86706; 86708; 86803; 87086; 87340; 87536

== ENCOUNTER 2019-02-27 00:12 | Emergency (ER) | payer OTHER ==
[~2019-02-27] VITALS: Ht 167.6 cm; Wt 85.0 kg
[~2019-02-27 00:12] MED LIST changes: -VITAMIN D
--- NOTE | 2019-02-27 01:05 | NUR ---
PHYSICIAN AT BEDSIDE. UPDATED ON PLAN OF CARE
[2019-02-27] MEDS ORDERED: VITAMIN D (01:15)
--- NOTE | 2019-02-27 01:34 | NUR ---
ULTRASOUND AT BEDSIDE FOR PERICENTESIS.
--- NOTE | 2019-02-27 02:39 | NUR ---
PERICENTESIS FINISHED AND MONITORING VITAL SIGNS. 5 LITERS OF FLUID REMOVED VIA ULTRASOUND GUIDED TECHNIQUE. PT TOLERATED WELL.
[2019-02-27 02:50] VITALS: BP 107/35
== END 2019-02-27 03:19 | disposition home or self-care (01) ==
LOC: ED 02:07
DX: K70.31 Alcoholic cirrhosis of liver with ascites (principal); E78.5 Hyperlipidemia, unspecified; I10 Essential (primary) hypertension; E11.9 Type 2 diabetes mellitus without complications; E78.00 Pure hypercholesterolemia, unspecified; Z95.1 Presence of aortocoronary bypass graft
CPT/HCPCS: 49082; 93005; 99285

== ENCOUNTER 2019-03-06 16:15 | Emergency (ER) | payer OTHER ==
[~2019-03-06] VITALS: Ht 162.6 cm; Wt 89.3 kg
[~2019-03-06 16:15] MED LIST changes: +VITAMIN D
[2019-03-06 17:05] LABS: BASOPHILS # (AUTO) 0.06 x10^3/uL (0-0.1); BASOPHILS % (AUTO) 1 % (0-1); EOSINOPHILS # (AUTO) 0.19 x10^3/uL (0-0.4); EOSINOPHILS % (AUTO) 3 % (1-7); LYMPHOCYTES # (AUTO) 1.18 x10^3/uL (1-3.4); LYMPHOCYTES % (AUTO) 18 % (22-44); MD NO; MEAN CORPUSCULAR HEMOGLOBIN 27.6 pg (27.5-34.5); MEAN CORPUSCULAR HGB CONC 33.3 g/dL (33.2-36.2); MEAN CORPUSCULAR VOLUME 82.9 fL (81-97); MEAN PLATELET VOLUME 8.5 fL (7.4-10.4); MONOCYTES # (AUTO) 0.55 x10^3/uL (0.2-0.8); MONOCYTES % (AUTO) 9 % (2-9); NEUTROPHILS # (AUTO) 4.45 x10^3/uL (1.8-6.8); NEUTROPHILS % (AUTO) 69 % (42-75); PLATELET COUNT 185 x10^3/uL (130-400); RED BLOOD COUNT 4.55 x10^6/uL (4.38-5.82); RED CELL DISTRIBUTION WIDTH 19.2 % (9.4-14.8)
[2019-03-06 17:17] LABS: PROTHROMBIN TIME 10.5 Seconds (9.6-11.5)
[2019-03-06 17:19] LABS: ALBUMIN 2.5 g/dL (3.4-5.0); ANION GAP 7 mmol/L (5-15); CALCIUM 8.5 mg/dL (8.5-10.1); CHLORIDE 104 mmol/L (98-107)
[2019-03-06 17:24] LABS: ALANINE AMINOTRANSFERASE 43 U/L (12-78); ALKALINE PHOSPHATASE 375 U/L (45-117); BILIRUBIN,TOTAL 0.6 mg/dL (0.2-1.0); CREATININE 1.07 mg/dL (0.7-1.3); TOTAL PROTEIN 6.4 g/dL (6.4-8.2)
--- NOTE | 2019-03-06 17:42 | NUR ---
PIANO CASE MAKER: PT TO ROOM FROM LOBBY VIA WHEELCHAIR
[2019-03-06 17:59] LABS: MICROSCOPIC NOT IND
[2019-03-06 18:04] LABS: CULTURE INDICATED? NO
--- NOTE | 2019-03-06 18:26 | NUR ---
PT HAS BEEN OUT OF DIURETIC FOR 2 WEEKS. STATES CONFUSION WITH ON PRESCRIPTION AND GETTING IT FILLED. PT HAD PARACENTISIS 2 WEEKS AGO. ABDOMEN DISTENDED. AWAITING PARACENTISIS AT THIS TIME, NO DISTRESS
--- NOTE | 2019-03-06 19:34 | NUR ---
CONTINUES TO AWAIT PARACENTIS. NO DISTRESS.
--- NOTE | 2019-03-06 20:28 | NUR ---
CONTACTED RADIOLOGY. AWAITING IR TO COME IN FOR PARACENTESIS. PT RESTING. REMAINS AT BEDSIDE
[2019-03-06] MEDS ORDERED: LIDOCAINE-MPF 1%, 5ML ONE (20:36)
--- NOTE | 2019-03-06 20:36 | NUR ---
UOB TO BATHROOM. AMBULATING WITH USE OF CANE. PT STATING THAT HE FEELS LIKE THE FLUIDS WENT FROM HIS ABDOMEN TO HIS LEGS, THAT HE FEELS THAT HE HAS FLUID IN HIS FEET AND LEGS. PT HAS COMPRESSION SOCKS WITH EDEMA NOTED. PT STATES HE DOES NOT WANT TO WAIT TO BE TAPPED. EXPLAINED TO PT STAFF IS ON THEIR WAY INTO HOSPITAL AND IT SHOULD BE SOON.
--- NOTE | 2019-03-06 20:46 | NUR ---
TO IR VIA [facility]
[2019-03-06 21:52] VITALS: BP 104/41
== END 2019-03-06 21:54 | disposition home or self-care (01) ==
LOC: ED 17:49
DX: K70.31 Alcoholic cirrhosis of liver with ascites (principal); Z72.9 Problem related to lifestyle, unspecified; E78.00 Pure hypercholesterolemia, unspecified; E78.5 Hyperlipidemia, unspecified; I10 Essential (primary) hypertension; E11.9 Type 2 diabetes mellitus without complications; Z95.1 Presence of aortocoronary bypass graft
CPT/HCPCS: 36415; 49083; 71045; 80053; 81003; 85025; 85610; 85730; 93005; 99285

== ENCOUNTER 2019-03-26 10:46 | Emergency (ER) | payer OTHER ==
[~2019-03-26] VITALS: Ht 162.6 cm; Wt 87.0 kg
--- NOTE | 2019-03-26 11:09 | NUR ---
Pt ambulates from triage to room with steady gait and balance. NADN. No obvious deficits observed.
--- NOTE | 2019-03-26 13:10 | NUR ---
LUNCH RN: PT BACK TO ROOM FROM RESTROOM, TAKEN TO US FOR PARACENTESIS
--- NOTE | 2019-03-26 13:32 | NUR ---
Pt away on gurney to ultrasound.
--- NOTE | 2019-03-26 13:56 | NUR ---
Pt back to room from ultrasound. Pt states, "I feel much better now, I am ready to go." Pt reconnected to monitoring specialist, NIBP, and continous pulse ox. NADN. Pt requesting warm blanket. Warm blanket provided per pt request. Both bed rails up for safety. Call light within reach.
[2019-03-26 14:54] VITALS: BP 104/51
--- NOTE | 2019-03-26 14:54 | NUR ---
Patient and given discharge instructions and they have confirmed that they understand the instructions. Patient ambulatory with steady gait with personal walking cane. Pt left with d/c paperwork and all personal belongings.
== END 2019-03-26 14:59 | disposition home or self-care (01) ==
LOC: ED 11:07
DX: K70.31 Alcoholic cirrhosis of liver with ascites (principal); I10 Essential (primary) hypertension; E11.9 Type 2 diabetes mellitus without complications; E78.00 Pure hypercholesterolemia, unspecified; F17.210 Nicotine dependence, cigarettes, uncomplicated; Z95.1 Presence of aortocoronary bypass graft
CPT/HCPCS: 49083; 99285

== ENCOUNTER 2019-04-02 09:53 | Emergency (ER) | payer OTHER ==
[~2019-04-02] VITALS: Ht 162.6 cm; Wt 86.0 kg
--- NOTE | 2019-04-02 10:22 | NUR ---
C/O "fluid in my belly" and difficulty breathing. Patient had paracentesis for ascites last week and is compliant with meds, but continues to retain fluid. ABD distended and firm. THELMA [employer] student at bedside evaluating patient. NAD. at bedside.
[2019-04-02 11:02] LABS: BASOPHILS # (AUTO) 0.03 x10^3/uL (0-0.1); BASOPHILS % (AUTO) 0 % (0-1); EOSINOPHILS # (AUTO) 0.22 x10^3/uL (0-0.4); EOSINOPHILS % (AUTO) 3 % (1-7); LYMPHOCYTES # (AUTO) 0.79 x10^3/uL (1-3.4); LYMPHOCYTES % (AUTO) 9 % (22-44); MD NO; MEAN CORPUSCULAR HEMOGLOBIN 28.6 pg (27.5-34.5); MEAN CORPUSCULAR HGB CONC 32.9 g/dL (33.2-36.2); MEAN PLATELET VOLUME 8.1 fL (7.4-10.4); MONOCYTES # (AUTO) 0.56 x10^3/uL (0.2-0.8); MONOCYTES % (AUTO) 6 % (2-9); NEUTROPHILS # (AUTO) 7.21 x10^3/uL (1.8-6.8); NEUTROPHILS % (AUTO) 82 % (42-75); PLATELET COUNT 235 x10^3/uL (130-400); RED CELL DISTRIBUTION WIDTH 18.7 % (9.4-14.8)
[2019-04-02 11:12] LABS: INTERNATIONAL NORMALIZED RATIO 1.02 (0.93-1.1); PROTHROMBIN TIME 10.7 Seconds (9.6-11.5)
[2019-04-02 11:13] LABS: ALANINE AMINOTRANSFERASE 45 U/L (12-78); ALBUMIN 2.2 g/dL (3.4-5.0); ANION GAP 7 mmol/L (5-15); CALCIUM 8.5 mg/dL (8.5-10.1); CHLORIDE 105 mmol/L (98-107); CREATININE 1.25 mg/dL (0.7-1.3)
[2019-04-02 11:15] LABS: ALKALINE PHOSPHATASE 399 U/L (45-117); BILIRUBIN,TOTAL 1.4 mg/dL (0.2-1.0); TOTAL PROTEIN 6.2 g/dL (6.4-8.2)
--- NOTE | 2019-04-02 11:29 | NUR ---
Resting in gurney. at bedside. No needs.
[2019-04-02 13:15] VITALS: BP 121/63
--- NOTE | 2019-04-02 13:15 | NUR ---
Back from paracentesis. VSS.
--- NOTE | 2019-04-02 14:16 | NUR ---
Patient/Caregiver given discharge instructions and they have confirmed that they understand the instructions. Patient ambulatory with steady gait.
== END 2019-04-02 14:17 | disposition home or self-care (01) ==
LOC: ED 12:15
DX: K70.31 Alcoholic cirrhosis of liver with ascites (principal); E78.5 Hyperlipidemia, unspecified; E78.00 Pure hypercholesterolemia, unspecified; I10 Essential (primary) hypertension; E11.9 Type 2 diabetes mellitus without complications
CPT/HCPCS: 36415; 49083; 80053; 83690; 85025; 85610; 85730; 93005; 99284

== ENCOUNTER 2019-04-09 08:29 | Emergency (ER) | payer OTHER ==
--- NOTE | 2019-04-09 09:40 | NUR ---
CONSENT SIGNED, PT AWAITING IR. CALL LIGHT WITHIN REACH.
[2019-04-09] MEDS ORDERED: LIDOCAINE-MPF 1%, 5ML ONE (10:15)
--- NOTE | 2019-04-09 10:20 | NUR ---
PT TO IR.
--- NOTE | 2019-04-09 11:39 | NUR ---
PT BACK FROM IR. CHART FOR RECHECK
[2019-04-09 11:55] VITALS: BP 110/53
== END 2019-04-09 11:57 | disposition home or self-care (01) ==
LOC: ED 08:56
DX: K70.31 Alcoholic cirrhosis of liver with ascites (principal); E78.00 Pure hypercholesterolemia, unspecified; I10 Essential (primary) hypertension; E11.9 Type 2 diabetes mellitus without complications; E78.5 Hyperlipidemia, unspecified; Z95.1 Presence of aortocoronary bypass graft
CPT/HCPCS: 49083; 99285

== ENCOUNTER 2019-04-15 07:59 | Emergency (ER) | payer OTHER ==
[~2019-04-15] VITALS: Ht 162.6 cm; Wt 84.5 kg
--- NOTE | 2019-04-15 08:24 | NUR ---
PT PRESENTED TO ED WITH ABD DISTENTION X 5 DAYS. PT WITH HX OF PARACENTESIS. ASSESSMENT COMPLETED. CALL LIGHT IN REACH. PT PLACED ON BP, CARDIAC AND CONT. PULSE OXIMETER.
[2019-04-15 08:43] LABS: BASOPHILS # (AUTO) 0.05 x10^3/uL (0-0.1); BASOPHILS % (AUTO) 1 % (0-1); EOSINOPHILS % (AUTO) 1 % (1-7); LYMPHOCYTES # (AUTO) 1.16 x10^3/uL (1-3.4); LYMPHOCYTES % (AUTO) 15 % (22-44); MD NO; MEAN CORPUSCULAR HEMOGLOBIN 28.8 pg (27.5-34.5); MEAN CORPUSCULAR VOLUME 87.2 fL (81-97); MEAN PLATELET VOLUME 7.8 fL (7.4-10.4); MONOCYTES # (AUTO) 0.53 x10^3/uL (0.2-0.8); MONOCYTES % (AUTO) 7 % (2-9); NEUTROPHILS # (AUTO) 6.17 x10^3/uL (1.8-6.8); NEUTROPHILS % (AUTO) 77 % (42-75); PLATELET COUNT 222 x10^3/uL (130-400); RED BLOOD COUNT 4.71 x10^6/uL (4.38-5.82); RED CELL DISTRIBUTION WIDTH 18.1 % (9.4-14.8)
--- NOTE | 2019-04-15 08:48 | NUR ---
pt taken to radiology for paracentesis
[2019-04-15 08:53] LABS: ALANINE AMINOTRANSFERASE 30 U/L (12-78); ALBUMIN 2.2 g/dL (3.4-5.0); ANION GAP 9 mmol/L (5-15); CALCIUM 8.6 mg/dL (8.5-10.1); CHLORIDE 107 mmol/L (98-107); CREATININE 1.19 mg/dL (0.7-1.3)
[2019-04-15 08:55] LABS: ALKALINE PHOSPHATASE 324 U/L (45-117); BILIRUBIN,TOTAL 0.8 mg/dL (0.2-1.0); TOTAL PROTEIN 6.4 g/dL (6.4-8.2)
--- NOTE | 2019-04-15 09:07 | NUR ---
pt still in radiology. report given to brenda klein
--- NOTE | 2019-04-15 09:09 | NUR ---
report given to brenda klein
--- NOTE | 2019-04-15 09:10 | NUR ---
REPORT FROM RACHAEL RANDLE. ASSUMED CARE OF PATIENT AT THIS TIME. PATIENT IN RADIOLOGY FOR PARACENTESIS.
[2019-04-15] MEDS ORDERED: LIDOCAINE 1%, 10ML ONE (09:30)
--- NOTE | 2019-04-15 09:43 | NUR ---
PATIENT BACK FROM RADIOLOGY, VS UPDATED IN CHART, NADN. PROVIDED WARM BLANKET PER REQUEST.
--- NOTE | 2019-04-15 10:10 | NUR ---
BP 93/47, MD AWARE. 500ML IVF TO BE ADMINISTERED, BP NOW 118/49, HOLD IVF PER ERP. PATIENT SITTING IN GURNEY SPEAKING WITH SPOUSE AT BEDSIDE.
[2019-04-15] MEDS ORDERED: SPIR25TA5 PO (10:12)
[2019-04-15] MEDS ORDERED: BUME2TAB PO (10:13)
[2019-04-15] MEDS ORDERED: ACET325T14 PO (10:14)
[2019-04-15 10:44] LABS: CELLS COUNTED 125
[2019-04-15 10:58] VITALS: BP 110/59
== END 2019-04-15 11:00 | disposition home or self-care (01) ==
LOC: ED 08:52
DX: K70.30 Alcoholic cirrhosis of liver without ascites (principal); E78.5 Hyperlipidemia, unspecified; E78.00 Pure hypercholesterolemia, unspecified; I10 Essential (primary) hypertension; E11.9 Type 2 diabetes mellitus without complications; Z95.1 Presence of aortocoronary bypass graft; Z79.899 Other long term (current) drug therapy
CPT/HCPCS: 36415; 49083; 80053; 82042; 83615; 85025; 87070; 87205; 89051; 93005; 99285; J3490; 99284

== ENCOUNTER 2019-04-22 13:41 | Emergency (ER) | payer OTHER ==
[~2019-04-22] VITALS: Ht 162.6 cm; Wt 86.6 kg
[~2019-04-22 13:41] MED LIST changes: +ACET325T14 PO; +SPIR25TA5 PO
--- NOTE | 2019-04-22 14:00 | NUR ---
PT ARRIVED VIA WHEELCHAIR TO ROOM 17. PT STATES HAVING "CHF EXACERATION." PT REPORTS HE HAS A TON OF WATER IN HIS LEGS AND STOMACH. ASLO REPROTS HE IS IN LIVER FAILURE AND KIDNEY PROBLEMS PER . PT JUST WANTS A TAP. VSS, PT AAO X 4, DRESSED IN GOWN AND RESTING IN GURNEY. AT BEDSIDE, SIDERAILS X [address], CALL LIGHT WITHIN REACH, AT BEDSIDE.
[2019-04-22] MEDS ORDERED: LIDOCAINE-MPF 1%, 5ML ONE (14:14)
--- NOTE | 2019-04-22 14:15 | NUR ---
MD TO BEDSIDE.
--- NOTE | 2019-04-22 14:36 | NUR ---
PT RESTING ON [facility], EDUCATED ON PLAN OF CARE INCLUDING PARACENTESIS. CONSENT SIGNED.
--- NOTE | 2019-04-22 15:20 | NUR ---
PT TO US.
[2019-04-22 16:40] VITALS: BP 111/64
--- NOTE | 2019-04-22 16:41 | NUR ---
Patient/Caregiver given discharge instructions and they have confirmed that they understand the instructions. Patient ambulatory with steady gait.
== END 2019-04-22 16:42 | disposition home or self-care (01) ==
LOC: ED 14:21
DX: K70.31 Alcoholic cirrhosis of liver with ascites (principal); E78.5 Hyperlipidemia, unspecified; E11.9 Type 2 diabetes mellitus without complications; I11.0 Hypertensive heart disease with heart failure; I50.9 Heart failure, unspecified; Z87.891 Personal history of nicotine dependence
CPT/HCPCS: 49083; 93005; 99285

== ENCOUNTER 2019-05-07 09:55 | Emergency (ER) | payer OTHER ==
[~2019-05-07] VITALS: Ht 162.6 cm; Wt 84.5 kg
--- NOTE | 2019-05-07 10:29 | NUR ---
ERP WAS IN TO SPEAK WITH PT AND AND RV'WD POC WITH THEM.
--- NOTE | 2019-05-07 10:47 | NUR ---
RECEIVED REPORT FROM KOMAL CANO, ASSUMING CARE AT THIS TIME. PT TAKEN FOR PARACENTESIS
[2019-05-07] MEDS ORDERED: LIDOCAINE-MPF 1%, 5ML ONE (10:53)
[2019-05-07 11:35] VITALS: BP 116/54
--- NOTE | 2019-05-07 11:35 | NUR ---
PT BACK FROM PROCEDURE, VSS, AT BEDSIDE, CALL LIGHT WITHIN REACH.
--- NOTE | 2019-05-07 11:45 | NUR ---
LAB CALLED FOR FLUID TESTS NOT PROCESSING, LAB REPORTS FLUID IS NOT IN LAB. US TO BE CONTACTED.
--- NOTE | 2019-05-07 11:55 | NUR ---
MULTIPLE CALLS PLACED TO US REGARDING FLUID TO BE TAKEN TO LAB, NO ANSWER.
--- NOTE | 2019-05-07 12:25 | NUR ---
FLUIDS COLLECTED AND IN LAB, NOW PROCESSING. AWAITING RESULTS AND DISPOSITION. PT AND FAMILY UPDATED ON POC AND REASON FOR DELAY. PT RESTING COMFORTABLY IN RNEY, CALL LIGHT WITHIN REACH, VSS.
[2019-05-07 13:05] LABS: CELLS COUNTED 100
--- NOTE | 2019-05-07 13:47 | NUR ---
LABS RESULTED, AWAITING PATHOLOGY REPORT AT THIS TIME TO DETERMINE DISPO. PT AND FAMILY UPDATED ON DELAY
== END 2019-05-07 14:42 | disposition home or self-care (01) ==
LOC: ED 11:12
DX: K72.90 Hepatic failure, unspecified without coma (principal); E78.5 Hyperlipidemia, unspecified; E78.00 Pure hypercholesterolemia, unspecified; E11.9 Type 2 diabetes mellitus without complications; I10 Essential (primary) hypertension; Z72.9 Problem related to lifestyle, unspecified; Z95.1 Presence of aortocoronary bypass graft; F17.200 Nicotine dependence, unspecified, uncomplicated
CPT/HCPCS: 49083; 87070; 87205; 89051; 99285

== ENCOUNTER → 2019-05-18 | Outpatient (CLI) | payer OTHER ==
[~2019-05-18] MED LIST changes: +LIDOCAINE-MPF 1%, 5ML ONE
== END | disposition home or self-care (01) ==
LOC: MERGE 08:30 → RAD 10:38
PROVIDERS: ATTEND Family Medicine
DX: K74.60 Unspecified cirrhosis of liver (principal)
CPT/HCPCS: 49083

== ENCOUNTER 2019-05-26 14:12 | Outpatient (CLI) | payer OTHER | END 2019-05-26 23:59 | disposition home or self-care (01) | LOC: RAD 14:12 → MERGE 14:30 → RAD 23:59 | PROVIDERS: ATTEND Family Medicine | DX: K74.60 Unspecified cirrhosis of liver (principal); R18.8 Other ascites | CPT/HCPCS: 49083 ==

== ENCOUNTER 2019-06-02 14:05 | Outpatient (CLI) | payer OTHER | END 2019-06-02 23:59 | disposition home or self-care (01) | LOC: RAD 14:05 → MERGE 14:30 → RAD 23:59 | PROVIDERS: ATTEND Family Medicine | DX: K74.60 Unspecified cirrhosis of liver (principal) | CPT/HCPCS: 49083 ==

== ENCOUNTER 2019-06-17 08:24 | Emergency (ER) | payer MEDICARE, OTHER ==
[~2019-06-17] VITALS: Ht 162.6 cm; Wt 80.0 kg
[2019-06-17 11:34] VITALS: BP 101/47
== END 2019-06-17 14:23 | disposition short-term general hospital (02) ==
LOC: ED 09:17
DX: R07.9 Chest pain, unspecified (principal); E87.1 Hypo-osmolality and hyponatremia; I12.9 Hypertensive chronic kidney disease with stage 1 through stage 4 chronic kidney disease, or unspecified chronic kidney disease; E11.22 Type 2 diabetes mellitus with diabetic chronic kidney disease; N18.9 Chronic kidney disease, unspecified; E78.00 Pure hypercholesterolemia, unspecified; Z72.9 Problem related to lifestyle, unspecified; Z95.1 Presence of aortocoronary bypass graft
CPT/HCPCS: 36415; 71045; 80053; 83880; 84484; 85025; 85610; 85730; 93005; 96360; 99285; J7030